=== PATIENT | male | born 1950 | race Caucasian/White ===

== ENCOUNTER 2020-03-29 01:35 | Inpatient (IN) | payer MEDICARE ==
[~2020-03-29] VITALS: Ht 172.7 cm; Wt 120.0 kg
[2020-03-29] MEDS ORDERED: SODIUM CHLORIDE 0.9% 1,000 ML IV ONE (02:11)
[2020-03-29] MEDS ORDERED: ONDANSETRON HCL 4MG/2ML INJ IV STA (02:11)
[2020-03-29 02:26] LABS: BASOPHILS % 1.3 % (0.0-2.0); EOSINOPHILS % 3.8 % (0.0-5.0); HEMATOCRIT. 43.8 % (42.0-52.0); HEMOGLOBIN. 14.9 g/dL (14.0-18.0); LYMPHOCYTES % 22.7 % (20.0-50.0); MEAN CORPUSCULAR HEMOGLOBIN 28.8 pg (28.0-32.0); MEAN PLATELET VOLUME 7.3 fl (7.4-10.4); MONOCYTES % 8.7 % (2.0-8.0); NEUTROPHILS % 63.5 % (40.0-76.0); PLATELET 242 x1000/uL (130-400); RED BLOOD CELL COUNT 5.16 mill/uL (4.7-6.1); RED CELL DISTRIBUTION WIDTH 13.4 % (11.6-14.6)
[2020-03-29 02:31] LABS: PROTHROMBIN TIME 10.7 sec (9.6-11.0)
[2020-03-29 02:32] LABS: CHLORIDE 99 mEq/L (98-107)
[2020-03-29 02:36] LABS: ETHANOL BLOOD < 10 mg/dL
[2020-03-29 02:41] LABS: CREATINE KINASE 47 IU/L (39-308)
[2020-03-29] MEDS ORDERED: CLONIDINE 0.2MG TABLET PO ONE (02:45)
[2020-03-29] MEDS ORDERED: LABETALOL 5MG/ML SYR 20 MG/4 ML SYRINGE IV ONE (02:45)
[2020-03-29] MEDS ORDERED: HYDRALAZINE 20MG/ML VIAL IV NR (04:15)
[2020-03-29] MEDS ORDERED: ONDANSETRON HCL 4MG/2ML INJ IV ONE (04:45)
[2020-03-29] MEDS ORDERED: LORAZEPAM 0.5MG TABLET PO ONE (04:45)
[2020-03-29] MEDS ORDERED: INSULIN LISPRO 100 UNITS/ML SUBCUT ONE (04:45)
[2020-03-29] MEDS ORDERED: METOCLOPRAMIDE HCL 10MG/2ML VIAL IV ONE (04:45)
[2020-03-29 04:49] LABS: CLARITY URINE CLEAR (CLEAR); COLOR URINE YELLOW (YELLOW); KETONES URINE 1+ (NEGATIVE); LEUKOCYTE ESTERASE URINE NEGATIVE (NEGATIVE); NITRITE URINE NEGATIVE (NEGATIVE); OCCULT BLOOD URINE NEGATIVE (NEGATIVE); PH URINE 7.5 (4.5-8.0); PROTEIN URINE 1+ (NEGATIVE); SPECIFIC GRAVITY URINE 1.025 (1.005-1.030); UROBILINOGEN URINE 0.2 E.U./dL (0.2-1.0)
[2020-03-29 05:00] LABS: *AMPHETAMINES SCREEN URINE NEGATIVE (NEGATIVE); *BARBITURATES SCREEN URINE NEGATIVE (NEGATIVE); *BENZODIAZEPINES SCREEN URINE NEGATIVE (NEGATIVE)
[2020-03-29] MEDS ORDERED: NICARDIPINE 40MG/200ML PREMIX 200 ML IV PRN (05:00)
[2020-03-29 05:01] LABS: *COCAINE SCREEN URINE NEGATIVE (NEGATIVE); CANNABINOID URINE SCREEN NEGATIVE (NEGATIVE); METHADONE URINE SCREEN NEGATIVE (NEGATIVE); OPIATES URINE SCREEN NEGATIVE (NEGATIVE); PHENCYCLIDINE URINE SCREEN NEGATIVE (NEGATIVE)
[2020-03-29] MEDS ORDERED: HYDRALAZINE 20MG/ML VIAL IV PRN (07:15)
[2020-03-29] MEDS ORDERED: NITROGLYCERIN 0.4MG TABLET SL SL PRN (07:15)
[2020-03-29] MEDS ORDERED: GUAIFENESIN 200MG/10ML SUGAR FREE UDC PO PRN (07:15)
[2020-03-29] MEDS ORDERED: LEVOFLOXACIN 500MG PREMIX 100 ML IV SCH ×2 (07:15→10:00)
[2020-03-29] MEDS ORDERED: IPRATROPIUM/ALBUTEROL 0.5-3(2.5)MG/3ML NEB ORI PRN (07:15)
[2020-03-29] MEDS ORDERED: DEXTROSE 50% WATER 50ML SYRINGE IV PRN (07:15)
[2020-03-29] MEDS ORDERED: ONDANSETRON HCL 4MG/2ML INJ IV PRN (07:15)
[2020-03-29] MEDS ORDERED: KETOROLAC 15MG/ML VIAL IV PRN (07:15)
[2020-03-29] MEDS: NITROGLYCERIN OINT 1GM/INCH UDPKT TD SCH ×3 (07:15→22:33)
[2020-03-29] MEDS ORDERED: ACETAMINOPHEN 325MG TABLET PO PRN (07:15)
[2020-03-29] MEDS: METOCLOPRAMIDE 10MG/10 ML UDC PO SCH ×3 (07:50→18:34)
[2020-03-29] MEDS: INSULIN LISPRO 100 UNITS/ML SUBCUT SCH ×7 (07:50→21:26)
[2020-03-29] MEDS ORDERED: MAGNESIUM/ALUMINUM HYDROXIDE/SIMETHICONE 30ML UDC PO PRN (09:00)
[2020-03-29] MEDS ORDERED: CEFTRIAXONE 1 G PREMIX 50 ML IV SCH ×2 (09:00)
[2020-03-29] MEDS: ASPIRIN 325MG EC TABLET PO SCH (09:52)
[2020-03-29] MEDS: FAMOTIDINE 20MG TABLET PO SCH ×2 (09:52→21:26)
[2020-03-29] MEDS: AMLODIPINE 10MG TABLET PO SCH (09:52)
[2020-03-29] MEDS: ZINC SULFATE 220 MG ( 50 ) CAPSULE PO SCH (09:52)
[2020-03-29] MEDS: ASCORBIC ACID 500 MG TABLET PO SCH ×2 (09:52→21:33)
[2020-03-29] MEDS: METOPROLOL TARTRATE 25MG TABLET PO SCH ×2 (09:52→21:26)
[2020-03-29] MEDS: ENOXAPARIN 40MG/0.4ML SYR SUBCUT SCH (09:52)
[2020-03-29] MEDS: LISINOPRIL 20MG TABLET PO SCH ×2 (09:52→21:26)
[2020-03-29] MEDS: BLOOD SUGAR DIAGNOSTIC STRIP TEST SCH ×4 (09:53→21:18)
[2020-03-29 09:57] LABS: CLARITY URINE CLEAR (CLEAR); COLOR URINE YELLOW (YELLOW); KETONES URINE 1+ (NEGATIVE); LEUKOCYTE ESTERASE URINE 1+ (NEGATIVE); NITRITE URINE NEGATIVE (NEGATIVE); OCCULT BLOOD URINE NEGATIVE (NEGATIVE); PH URINE 6.5 (4.5-8.0); PROTEIN URINE NEGATIVE (NEGATIVE); SPECIFIC GRAVITY URINE 1.024 (1.005-1.030); UROBILINOGEN URINE 0.2 E.U./dL (0.2-1.0)
[2020-03-29] MEDS ORDERED: INSULIN GLARGINE UD 100 UNITS/ML SYR SUBCUT SCH (10:00)
[2020-03-29] MEDS ORDERED: POTASSIUM CHLORIDE 20MEQ TABLET SR PO SCH (11:00)
[2020-03-29] MEDS ORDERED: KCL 20MEQ/100ML PREMIX 100 ML IV ONE (11:00)
[2020-03-29] MEDS: HYDRALAZINE HCL 50MG TABLET PO SCH ×2 (14:46→22:33)
[2020-03-29 16:07] LABS: CREATINE KINASE 68 IU/L (39-308)
[2020-03-29] MEDS: CLONIDINE 0.1MG TABLET PO PRN (19:35)
[2020-03-29 23:54] LABS: CREATINE KINASE 120 IU/L (39-308)
[2020-03-29 23:55] LABS: CREATINE KINASE MB FRACTION 2.1 ng/mL (0.5-3.6)
[2020-03-30 00:51] VITALS: BP 164/79
[2020-03-30] MEDS ORDERED: ASPI325T85 PO (01:19)
[2020-03-30] MEDS: CLONIDINE 0.1MG TABLET PO PRN (04:22)
[2020-03-30] MEDS: NITROGLYCERIN OINT 1GM/INCH UDPKT TD SCH ×3 (06:20→21:32)
[2020-03-30] MEDS: BLOOD SUGAR DIAGNOSTIC STRIP TEST SCH ×4 (06:20→21:33)
[2020-03-30] MEDS: HYDRALAZINE HCL 50MG TABLET PO SCH ×4 (06:20→23:19)
[2020-03-30 06:34] LABS: BASOPHILS % 0.7 % (0.0-2.0); EOSINOPHILS % 0.4 % (0.0-5.0); HEMATOCRIT. 42.2 % (42.0-52.0); MEAN CORPUSCULAR HEMOGLOBIN 28.5 pg (28.0-32.0); MEAN PLATELET VOLUME 7.1 fl (7.4-10.4); MONOCYTES % 5.6 % (2.0-8.0); NEUTROPHILS % 84.3 % (40.0-76.0); PLATELET 211 x1000/uL (130-400); RED BLOOD CELL COUNT 4.91 mill/uL (4.7-6.1); RED CELL DISTRIBUTION WIDTH 13.9 % (11.6-14.6)
[2020-03-30] MEDS: INSULIN LISPRO 100 UNITS/ML SUBCUT SCH ×7 (06:45→21:31)
[2020-03-30 07:02] LABS: CHLORIDE 102 mEq/L (98-107)
[2020-03-30 07:10] LABS: PHOSPHORUS 3.1 mg/dL (2.5-4.9)
[2020-03-30 08:00] VITALS: BP 138/67
[2020-03-30] MEDS: FAMOTIDINE 20MG TABLET PO SCH ×2 (09:50→21:32)
[2020-03-30] MEDS: ASPIRIN 325MG EC TABLET PO SCH (09:50)
[2020-03-30] MEDS: LEVOFLOXACIN 500MG PREMIX 100 ML IV SCH (09:50)
[2020-03-30] MEDS: METOCLOPRAMIDE 10MG/10 ML UDC PO SCH ×4 (09:50→17:26)
[2020-03-30] MEDS: LISINOPRIL 20MG TABLET PO SCH ×2 (09:51→21:32)
[2020-03-30] MEDS: ENOXAPARIN 40MG/0.4ML SYR SUBCUT SCH (09:51)
[2020-03-30] MEDS: ZINC SULFATE 220 MG ( 50 ) CAPSULE PO SCH (09:51)
[2020-03-30] MEDS: AMLODIPINE 10MG TABLET PO SCH (09:51)
[2020-03-30] MEDS: METOPROLOL TARTRATE 25MG TABLET PO SCH ×2 (09:51→21:35)
[2020-03-30] MEDS: ASCORBIC ACID 500 MG TABLET PO SCH ×2 (09:51→21:31)
[2020-03-30] MEDS: INSULIN GLARGINE UD 100 UNITS/ML SYR SUBCUT SCH (10:22)
[2020-03-30] MEDS: CEFTRIAXONE 1 G PREMIX 50 ML IV SCH (10:23)
[2020-03-30] MEDS: ACETAMINOPHEN 325MG TABLET PO PRN (10:45)
[2020-03-30 12:00] VITALS: BP 138/71
[2020-03-30 16:00] VITALS: BP 114/55
[2020-03-30] MEDS: NYSTATIN POWDER 15GM TOP SCH (21:38)
[2020-03-30 21:40] VITALS: BP 132/50
[2020-03-31] VITALS: BP 135/62
[2020-03-31 04:00] VITALS: BP 140/65
[2020-03-31] MEDS: HYDRALAZINE HCL 50MG TABLET PO SCH ×3 (06:07→21:41)
[2020-03-31] MEDS: BLOOD SUGAR DIAGNOSTIC STRIP TEST SCH ×4 (06:07→21:41)
[2020-03-31] MEDS: METOCLOPRAMIDE 10MG/10 ML UDC PO SCH ×3 (06:07→17:09)
[2020-03-31] MEDS: NITROGLYCERIN OINT 1GM/INCH UDPKT TD SCH ×3 (06:07→21:45)
[2020-03-31] MEDS: INSULIN LISPRO 100 UNITS/ML SUBCUT SCH ×7 (06:09→21:44)
[2020-03-31 08:00] VITALS: BP 131/48
[2020-03-31] MEDS: LEVOFLOXACIN 500MG PREMIX 100 ML IV SCH (08:00)
[2020-03-31] MEDS: CEFTRIAXONE 1 G PREMIX 50 ML IV SCH (09:00)
[2020-03-31] MEDS: METOPROLOL TARTRATE 25MG TABLET PO SCH ×2 (09:10→21:40)
[2020-03-31] MEDS: FAMOTIDINE 20MG TABLET PO SCH ×2 (09:11→21:41)
[2020-03-31] MEDS: ZINC SULFATE 220 MG ( 50 ) CAPSULE PO SCH (09:11)
[2020-03-31] MEDS: ASCORBIC ACID 500 MG TABLET PO SCH ×2 (09:12→21:41)
[2020-03-31] MEDS: AMLODIPINE 10MG TABLET PO SCH (09:12)
[2020-03-31] MEDS: ASPIRIN 325MG EC TABLET PO SCH (09:12)
[2020-03-31] MEDS: LISINOPRIL 20MG TABLET PO SCH ×2 (09:12→21:41)
[2020-03-31] MEDS: ENOXAPARIN 30MG/0.3ML SYR SUBCUT SCH ×2 (09:12→21:42)
[2020-03-31] MEDS: NYSTATIN POWDER 15GM TOP SCH ×2 (09:13→21:42)
[2020-03-31] MEDS: INSULIN GLARGINE UD 100 UNITS/ML SYR SUBCUT SCH (11:50)
[2020-03-31 12:00] VITALS: BP 134/68
[2020-03-31 16:20] VITALS: BP 113/51
[2020-03-31] MEDS: HALOPERIDOL LACTATE 5MG/ML VIAL IM PRN (17:11)
[2020-03-31] MEDS: TRAMADOL 50MG TABLET PO PRN (17:11)
[2020-03-31 20:00] VITALS: BP 133/67
[2020-04-01] VITALS: BP 149/80
[2020-04-01] MEDS: TRAMADOL 50MG TABLET PO PRN ×2 (00:02→22:33)
[2020-04-01 04:00] VITALS: BP 132/76
[2020-04-01] MEDS: NITROGLYCERIN OINT 1GM/INCH UDPKT TD SCH ×3 (06:59→22:34)
[2020-04-01] MEDS: HYDRALAZINE HCL 50MG TABLET PO SCH ×3 (06:59→22:33)
[2020-04-01] MEDS: METOCLOPRAMIDE 10MG/10 ML UDC PO SCH ×3 (06:59→18:03)
[2020-04-01] MEDS: BLOOD SUGAR DIAGNOSTIC STRIP TEST SCH ×4 (07:00→21:11)
[2020-04-01] MEDS: INSULIN LISPRO 100 UNITS/ML SUBCUT SCH ×7 (07:00→22:43)
[2020-04-01 08:00] VITALS: BP 129/65
[2020-04-01] MEDS: ASPIRIN 325MG EC TABLET PO SCH (08:41)
[2020-04-01] MEDS: FAMOTIDINE 20MG TABLET PO SCH ×2 (08:41→21:06)
[2020-04-01] MEDS: ASCORBIC ACID 500 MG TABLET PO SCH ×2 (08:42→21:06)
[2020-04-01] MEDS: ACETAMINOPHEN 325MG TABLET PO PRN (08:42)
[2020-04-01] MEDS: AMLODIPINE 10MG TABLET PO SCH (08:46)
[2020-04-01] MEDS: DOCUSATE SODIUM 100MG CAPSULE PO PRN (08:46)
[2020-04-01] MEDS: ENOXAPARIN 30MG/0.3ML SYR SUBCUT SCH ×2 (08:47→21:06)
[2020-04-01] MEDS: ZINC SULFATE 220 MG ( 50 ) CAPSULE PO SCH (08:49)
[2020-04-01] MEDS: LISINOPRIL 20MG TABLET PO SCH ×2 (08:50→21:08)
[2020-04-01] MEDS: METOPROLOL TARTRATE 25MG TABLET PO SCH ×2 (08:50→21:08)
[2020-04-01] MEDS: NYSTATIN POWDER 15GM TOP SCH ×2 (08:57→21:31)
[2020-04-01 12:00] VITALS: BP 128/69
[2020-04-01] MEDS: INSULIN GLARGINE UD 100 UNITS/ML SYR SUBCUT SCH (12:03)
[2020-04-01] MEDS: CEFTRIAXONE 1 G PREMIX 50 ML IV SCH (12:31)
[2020-04-01 16:00] VITALS: BP 140/74
[2020-04-01 20:00] VITALS: BP 154/85
[2020-04-01] MEDS: ZOLPIDEM TARTRATE 5MG TABLET PO PRN (21:06)
[2020-04-02] VITALS: BP 118/70
[2020-04-02] MEDS: HALOPERIDOL LACTATE 5MG/ML VIAL IM PRN (01:39)
[2020-04-02] MEDS: BLOOD SUGAR DIAGNOSTIC STRIP TEST SCH ×4 (05:45→21:55)
[2020-04-02] MEDS: INSULIN LISPRO 100 UNITS/ML SUBCUT SCH ×7 (05:49→22:21)
[2020-04-02] MEDS: HYDRALAZINE HCL 50MG TABLET PO SCH ×3 (05:49→21:43)
[2020-04-02] MEDS: NITROGLYCERIN OINT 1GM/INCH UDPKT TD SCH ×3 (05:50→21:45)
[2020-04-02] MEDS: METOCLOPRAMIDE 10MG/10 ML UDC PO SCH ×3 (05:50→17:08)
[2020-04-02 05:59] VITALS: BP 150/69
[2020-04-02 07:53] VITALS: BP 124/58
[2020-04-02] MEDS: CEFTRIAXONE 1,000 MG in DEXTROSE 5% WATER 50 ML IV SCH (09:00)
[2020-04-02] MEDS: ENOXAPARIN 30MG/0.3ML SYR SUBCUT SCH ×2 (09:24→21:45)
[2020-04-02] MEDS: NYSTATIN POWDER 15GM TOP SCH ×2 (09:51→21:46)
[2020-04-02] MEDS: INSULIN GLARGINE UD 100 UNITS/ML SYR SUBCUT SCH (10:05)
[2020-04-02] MEDS: ASPIRIN 325MG EC TABLET PO SCH (11:05)
[2020-04-02] MEDS: LISINOPRIL 20MG TABLET PO SCH ×2 (11:07→21:44)
[2020-04-02] MEDS: FAMOTIDINE 20MG TABLET PO SCH ×2 (11:07→21:42)
[2020-04-02] MEDS: ZINC SULFATE 220 MG ( 50 ) CAPSULE PO SCH (11:07)
[2020-04-02] MEDS: AMLODIPINE 10MG TABLET PO SCH (11:07)
[2020-04-02] MEDS: ASCORBIC ACID 500 MG TABLET PO SCH ×2 (11:08→21:43)
[2020-04-02] MEDS: METOPROLOL TARTRATE 25MG TABLET PO SCH ×2 (11:08→21:44)
[2020-04-02 12:00] VITALS: BP 151/76
[2020-04-02 16:00] VITALS: BP 127/64
[2020-04-02] MEDS: ACETAMINOPHEN 325MG TABLET PO PRN (18:06)
[2020-04-02 20:00] VITALS: BP 110/58
[2020-04-02] MEDS: ZOLPIDEM TARTRATE 5MG TABLET PO PRN (21:44)
[2020-04-03] VITALS: BP 148/74
[2020-04-03 04:00] VITALS: BP 110/62
[2020-04-03] MEDS: NITROGLYCERIN OINT 1GM/INCH UDPKT TD SCH ×3 (05:43→23:10)
[2020-04-03] MEDS: HYDRALAZINE HCL 50MG TABLET PO SCH ×3 (05:43→23:10)
[2020-04-03] MEDS: METOCLOPRAMIDE 10MG/10 ML UDC PO SCH ×3 (05:52→17:51)
[2020-04-03] MEDS: INSULIN LISPRO 100 UNITS/ML SUBCUT SCH ×7 (06:15→23:57)
[2020-04-03] MEDS: BLOOD SUGAR DIAGNOSTIC STRIP TEST SCH ×4 (06:16→21:00)
[2020-04-03 08:05] VITALS: BP 96/82
[2020-04-03] MEDS: AMLODIPINE 10MG TABLET PO SCH (09:00)
[2020-04-03] MEDS: LISINOPRIL 20MG TABLET PO SCH (09:00)
[2020-04-03] MEDS: METOPROLOL TARTRATE 25MG TABLET PO SCH ×2 (09:00→23:08)
[2020-04-03] MEDS: NYSTATIN POWDER 15GM TOP SCH (09:00)
[2020-04-03] MEDS: CEFTRIAXONE 1,000 MG in DEXTROSE 5% WATER 50 ML IV SCH (09:02)
[2020-04-03] MEDS: FAMOTIDINE 20MG TABLET PO SCH ×2 (09:02→23:09)
[2020-04-03] MEDS: ZINC SULFATE 220 MG ( 50 ) CAPSULE PO SCH (09:02)
[2020-04-03] MEDS: ASPIRIN 325MG EC TABLET PO SCH (09:02)
[2020-04-03] MEDS: ENOXAPARIN 30MG/0.3ML SYR SUBCUT SCH ×2 (09:04→23:09)
[2020-04-03 11:31] VITALS: BP 111/66
[2020-04-03] MEDS: ASCORBIC ACID 500 MG TABLET PO SCH ×2 (11:31→23:09)
[2020-04-03] MEDS: INSULIN GLARGINE UD 100 UNITS/ML SYR SUBCUT SCH (11:32)
[2020-04-03 15:57] VITALS: BP 112/58
[2020-04-03 20:00] VITALS: BP 126/68
[2020-04-04] VITALS: BP 119/70
[2020-04-04] MEDS: LISINOPRIL 20MG TABLET PO SCH ×3 (00:01→21:42)
[2020-04-04 04:00] VITALS: BP 110/84
[2020-04-04] MEDS: BLOOD SUGAR DIAGNOSTIC STRIP TEST SCH ×4 (07:27→21:00)
[2020-04-04] MEDS: NYSTATIN POWDER 15GM TOP SCH ×3 (07:35→23:05)
[2020-04-04] MEDS: NITROGLYCERIN OINT 1GM/INCH UDPKT TD SCH ×3 (07:36→22:49)
[2020-04-04] MEDS: HYDRALAZINE HCL 50MG TABLET PO SCH ×3 (07:36→22:49)
[2020-04-04] MEDS: METOCLOPRAMIDE 10MG/10 ML UDC PO SCH ×3 (07:36→17:28)
[2020-04-04 08:00] VITALS: BP 135/64
[2020-04-04] MEDS: CEFTRIAXONE 1,000 MG in DEXTROSE 5% WATER 50 ML IV SCH (08:59)
[2020-04-04] MEDS: FAMOTIDINE 20MG TABLET PO SCH ×2 (09:00→21:42)
[2020-04-04] MEDS: ZINC SULFATE 220 MG ( 50 ) CAPSULE PO SCH (09:00)
[2020-04-04] MEDS: AMLODIPINE 10MG TABLET PO SCH (09:00)
[2020-04-04] MEDS: ASCORBIC ACID 500 MG TABLET PO SCH ×2 (09:00→21:42)
[2020-04-04] MEDS: METOPROLOL TARTRATE 25MG TABLET PO SCH ×2 (09:00→21:42)
[2020-04-04] MEDS: ASPIRIN 325MG EC TABLET PO SCH (09:01)
[2020-04-04] MEDS: ENOXAPARIN 30MG/0.3ML SYR SUBCUT SCH ×2 (09:01→21:43)
[2020-04-04] MEDS: INSULIN LISPRO 100 UNITS/ML SUBCUT SCH ×7 (09:36→21:44)
[2020-04-04] MEDS: INSULIN GLARGINE UD 100 UNITS/ML SYR SUBCUT SCH (10:05)
[2020-04-04 12:00] VITALS: BP 121/66
[2020-04-04 16:00] VITALS: BP 93/57
[2020-04-04 20:00] VITALS: BP 134/72
[2020-04-05] VITALS (7 sets, daily range): BP systolic 107–147; BP diastolic 60–69
[2020-04-05] MEDS: ACETAMINOPHEN 325MG TABLET PO PRN ×2 (02:40→23:03)
[2020-04-05] MEDS: BLOOD SUGAR DIAGNOSTIC STRIP TEST SCH ×4 (05:54→21:47)
[2020-04-05] MEDS: NITROGLYCERIN OINT 1GM/INCH UDPKT TD SCH ×3 (06:03→21:41)
[2020-04-05] MEDS: HYDRALAZINE HCL 50MG TABLET PO SCH ×3 (06:03→21:42)
[2020-04-05] MEDS: METOCLOPRAMIDE 10MG/10 ML UDC PO SCH ×3 (06:03→16:59)
[2020-04-05] MEDS: ENOXAPARIN 30MG/0.3ML SYR SUBCUT SCH ×2 (09:24→21:40)
[2020-04-05] MEDS: FAMOTIDINE 20MG TABLET PO SCH ×2 (09:26→21:41)
[2020-04-05] MEDS: LISINOPRIL 20MG TABLET PO SCH ×2 (09:26→21:42)
[2020-04-05] MEDS: ZINC SULFATE 220 MG ( 50 ) CAPSULE PO SCH (09:26)
[2020-04-05] MEDS: ASCORBIC ACID 500 MG TABLET PO SCH ×2 (09:26→21:41)
[2020-04-05] MEDS: ASPIRIN 325MG EC TABLET PO SCH (09:27)
[2020-04-05] MEDS: METOPROLOL TARTRATE 25MG TABLET PO SCH ×2 (09:27→21:41)
[2020-04-05] MEDS: AMLODIPINE 10MG TABLET PO SCH (09:28)
[2020-04-05] MEDS: INSULIN LISPRO 100 UNITS/ML SUBCUT SCH ×7 (09:30→21:46)
[2020-04-05] MEDS: INSULIN GLARGINE UD 100 UNITS/ML SYR SUBCUT SCH (09:32)
[2020-04-05] MEDS: NYSTATIN POWDER 15GM TOP SCH ×2 (09:33→21:48)
[2020-04-06] VITALS (7 sets, daily range): BP systolic 115–141; BP diastolic 59–73
[2020-04-06] MEDS: HYDRALAZINE HCL 50MG TABLET PO SCH ×3 (06:21→22:00)
[2020-04-06] MEDS: METOCLOPRAMIDE 10MG/10 ML UDC PO SCH ×3 (06:22→18:29)
[2020-04-06] MEDS: NITROGLYCERIN OINT 1GM/INCH UDPKT TD SCH ×3 (06:22→22:00)
[2020-04-06] MEDS: BLOOD SUGAR DIAGNOSTIC STRIP TEST SCH ×4 (06:22→21:00)
[2020-04-06] MEDS: NYSTATIN POWDER 15GM TOP SCH ×2 (09:00→22:47)
[2020-04-06] MEDS: ASCORBIC ACID 500 MG TABLET PO SCH ×2 (09:11→22:50)
[2020-04-06] MEDS: FAMOTIDINE 20MG TABLET PO SCH ×2 (09:11→22:52)
[2020-04-06] MEDS: AMLODIPINE 10MG TABLET PO SCH (09:11)
[2020-04-06] MEDS: ZINC SULFATE 220 MG ( 50 ) CAPSULE PO SCH (09:11)
[2020-04-06] MEDS: ASPIRIN 325MG EC TABLET PO SCH (09:12)
[2020-04-06] MEDS: LISINOPRIL 20MG TABLET PO SCH ×2 (09:12→22:50)
[2020-04-06] MEDS: METOPROLOL TARTRATE 25MG TABLET PO SCH ×2 (09:12→22:50)
[2020-04-06] MEDS: ENOXAPARIN 30MG/0.3ML SYR SUBCUT SCH ×2 (09:13→22:49)
[2020-04-06] MEDS: INSULIN LISPRO 100 UNITS/ML SUBCUT SCH ×6 (09:19→22:46)
[2020-04-06] MEDS: INSULIN GLARGINE UD 100 UNITS/ML SYR SUBCUT SCH (12:08)
[2020-04-06] MEDS: ACETAMINOPHEN 325MG TABLET PO PRN (19:14)
[2020-04-07] VITALS: BP 111/57
[2020-04-07] MEDS: INSULIN LISPRO 100 UNITS/ML SUBCUT SCH ×8 (01:40→21:00)
[2020-04-07 04:00] VITALS: BP 132/61
[2020-04-07] MEDS: HYDRALAZINE HCL 50MG TABLET PO SCH ×3 (05:30→22:00)
[2020-04-07] MEDS: NITROGLYCERIN OINT 1GM/INCH UDPKT TD SCH ×3 (05:30→23:12)
[2020-04-07] MEDS: BLOOD SUGAR DIAGNOSTIC STRIP TEST SCH ×4 (06:15→21:00)
[2020-04-07] MEDS: METOCLOPRAMIDE 10MG/10 ML UDC PO SCH ×3 (06:20→17:22)
[2020-04-07 08:00] VITALS: BP 116/56
[2020-04-07] MEDS: ASPIRIN 325MG EC TABLET PO SCH (09:33)
[2020-04-07] MEDS: ENOXAPARIN 30MG/0.3ML SYR SUBCUT SCH ×2 (09:33→23:25)
[2020-04-07] MEDS: ASCORBIC ACID 500 MG TABLET PO SCH ×2 (09:33→23:12)
[2020-04-07] MEDS: ZINC SULFATE 220 MG ( 50 ) CAPSULE PO SCH (09:33)
[2020-04-07] MEDS: FAMOTIDINE 20MG TABLET PO SCH ×2 (09:33→23:12)
[2020-04-07] MEDS: AMLODIPINE 10MG TABLET PO SCH (09:33)
[2020-04-07] MEDS: LISINOPRIL 20MG TABLET PO SCH ×2 (09:34→23:13)
[2020-04-07] MEDS: METOPROLOL TARTRATE 25MG TABLET PO SCH ×2 (09:34→23:13)
[2020-04-07] MEDS: NYSTATIN POWDER 15GM TOP SCH ×2 (09:36→21:00)
[2020-04-07 09:39] LABS: HEMATOCRIT. 41.7 % (42.0-52.0); LYMPHOCYTES % 18.1 % (20.0-50.0); MEAN CORPUSCULAR HEMOGLOBIN 29.1 pg (28.0-32.0); MEAN CORPUSCULAR VOLUME 86.7 fL (80.0-94.0); MEAN PLATELET VOLUME 7.1 fl (7.4-10.4); MONOCYTES % 9.7 % (2.0-8.0); NEUTROPHILS % 65.2 % (40.0-76.0); PLATELET 255 x1000/uL (130-400); RED BLOOD CELL COUNT 4.81 mill/uL (4.7-6.1)
[2020-04-07 09:58] LABS: CHLORIDE 106 mEq/L (98-107)
[2020-04-07] MEDS: INSULIN GLARGINE UD 100 UNITS/ML SYR SUBCUT SCH (10:06)
[2020-04-07 12:00] VITALS: BP 109/55
[2020-04-07 16:00] VITALS: BP 107/49
[2020-04-07 20:00] VITALS: BP 112/59
[2020-04-08] VITALS (7 sets, daily range): BP systolic 99–139; BP diastolic 51–70
[2020-04-08] MEDS: METOCLOPRAMIDE 10MG/10 ML UDC PO SCH ×3 (06:16→17:11)
[2020-04-08] MEDS: NITROGLYCERIN OINT 1GM/INCH UDPKT TD SCH ×3 (06:17→22:29)
[2020-04-08] MEDS: HYDRALAZINE HCL 50MG TABLET PO SCH ×3 (06:18→22:29)
[2020-04-08] MEDS: BLOOD SUGAR DIAGNOSTIC STRIP TEST SCH ×4 (06:18→20:29)
[2020-04-08] MEDS: INSULIN LISPRO 100 UNITS/ML SUBCUT SCH ×7 (06:18→20:41)
[2020-04-08] MEDS: METOPROLOL TARTRATE 25MG TABLET PO SCH ×2 (08:11→20:32)
[2020-04-08] MEDS: AMLODIPINE 10MG TABLET PO SCH (08:12)
[2020-04-08] MEDS: LISINOPRIL 20MG TABLET PO SCH ×2 (08:14→20:31)
[2020-04-08] MEDS: FAMOTIDINE 20MG TABLET PO SCH ×2 (09:35→20:28)
[2020-04-08] MEDS: ENOXAPARIN 30MG/0.3ML SYR SUBCUT SCH ×2 (09:35→20:28)
[2020-04-08] MEDS: ASCORBIC ACID 500 MG TABLET PO SCH ×2 (09:35→20:28)
[2020-04-08] MEDS: ASPIRIN 325MG EC TABLET PO SCH (09:35)
[2020-04-08] MEDS: ZINC SULFATE 220 MG ( 50 ) CAPSULE PO SCH (09:35)
[2020-04-08] MEDS: NYSTATIN POWDER 15GM TOP SCH ×2 (09:44→20:42)
[2020-04-08] MEDS: INSULIN GLARGINE UD 100 UNITS/ML SYR SUBCUT SCH (12:30)
[2020-04-09] VITALS (7 sets, daily range): BP systolic 94–141; BP diastolic 54–68
[2020-04-09] MEDS: METOCLOPRAMIDE 10MG/10 ML UDC PO SCH ×3 (05:58→16:39)
[2020-04-09] MEDS: HYDRALAZINE HCL 50MG TABLET PO SCH ×3 (05:59→22:11)
[2020-04-09] MEDS: NITROGLYCERIN OINT 1GM/INCH UDPKT TD SCH ×3 (05:59→22:11)
[2020-04-09] MEDS: BLOOD SUGAR DIAGNOSTIC STRIP TEST SCH ×4 (05:59→20:39)
[2020-04-09] MEDS: INSULIN LISPRO 100 UNITS/ML SUBCUT SCH ×7 (06:11→20:54)
[2020-04-09] MEDS: ZINC SULFATE 220 MG ( 50 ) CAPSULE PO SCH (09:33)
[2020-04-09] MEDS: METOPROLOL TARTRATE 25MG TABLET PO SCH ×2 (09:34→20:37)
[2020-04-09] MEDS: LISINOPRIL 20MG TABLET PO SCH ×2 (09:34→20:37)
[2020-04-09] MEDS: AMLODIPINE 10MG TABLET PO SCH (09:34)
[2020-04-09] MEDS: ASCORBIC ACID 500 MG TABLET PO SCH ×2 (09:34→20:38)
[2020-04-09] MEDS: FAMOTIDINE 20MG TABLET PO SCH ×2 (09:35→20:38)
[2020-04-09] MEDS: ENOXAPARIN 30MG/0.3ML SYR SUBCUT SCH ×2 (09:35→20:39)
[2020-04-09] MEDS: ASPIRIN 325MG EC TABLET PO SCH (10:01)
[2020-04-09] MEDS: NYSTATIN POWDER 15GM TOP SCH ×2 (10:13→20:45)
[2020-04-09] MEDS: INSULIN GLARGINE UD 100 UNITS/ML SYR SUBCUT SCH (10:18)
[2020-04-10] VITALS: BP 116/60
[2020-04-10 04:00] VITALS: BP 114/65
[2020-04-10] MEDS: HYDRALAZINE HCL 50MG TABLET PO SCH ×3 (05:20→21:07)
[2020-04-10] MEDS: NITROGLYCERIN OINT 1GM/INCH UDPKT TD SCH ×2 (05:47→14:21)
[2020-04-10] MEDS: METOCLOPRAMIDE 10MG/10 ML UDC PO SCH ×3 (05:47→16:44)
[2020-04-10] MEDS: BLOOD SUGAR DIAGNOSTIC STRIP TEST SCH ×4 (05:48→21:06)
[2020-04-10] MEDS: ACETAMINOPHEN 325MG TABLET PO PRN ×2 (06:00→11:02)
[2020-04-10] MEDS: INSULIN LISPRO 100 UNITS/ML SUBCUT SCH ×7 (06:14→21:00)
[2020-04-10 08:00] VITALS: BP 119/51
[2020-04-10] MEDS: ASPIRIN 325MG EC TABLET PO SCH (09:33)
[2020-04-10] MEDS: FAMOTIDINE 20MG TABLET PO SCH ×2 (09:34→21:06)
[2020-04-10] MEDS: ASCORBIC ACID 500 MG TABLET PO SCH ×2 (09:34→21:06)
[2020-04-10] MEDS: AMLODIPINE 10MG TABLET PO SCH (09:34)
[2020-04-10] MEDS: METOPROLOL TARTRATE 25MG TABLET PO SCH ×2 (09:34→21:00)
[2020-04-10] MEDS: LISINOPRIL 20MG TABLET PO SCH ×2 (09:34→21:00)
[2020-04-10] MEDS: ZINC SULFATE 220 MG ( 50 ) CAPSULE PO SCH (09:34)
[2020-04-10] MEDS: ENOXAPARIN 30MG/0.3ML SYR SUBCUT SCH ×2 (09:35→21:05)
[2020-04-10] MEDS: NYSTATIN POWDER 15GM TOP SCH ×2 (09:41→21:07)
[2020-04-10] MEDS: INSULIN GLARGINE UD 100 UNITS/ML SYR SUBCUT SCH (11:00)
[2020-04-10 12:00] VITALS: BP 126/67
[2020-04-10 16:00] VITALS: BP 112/64
[2020-04-10 20:00] VITALS: BP 109/62
[2020-04-11] MEDS: NITROGLYCERIN OINT 1GM/INCH UDPKT TD SCH ×4 (00:05→22:51)
[2020-04-11] MEDS: HYDRALAZINE HCL 50MG TABLET PO SCH ×3 (06:00→22:49)
[2020-04-11] MEDS: BLOOD SUGAR DIAGNOSTIC STRIP TEST SCH ×4 (06:26→21:00)
[2020-04-11] MEDS: ASCORBIC ACID 500 MG TABLET PO SCH ×2 (08:57→22:49)
[2020-04-11] MEDS: FAMOTIDINE 20MG TABLET PO SCH ×2 (08:57→22:49)
[2020-04-11] MEDS: METOPROLOL TARTRATE 25MG TABLET PO SCH ×2 (08:58→22:48)
[2020-04-11] MEDS: ASPIRIN 325MG EC TABLET PO SCH (08:58)
[2020-04-11] MEDS: ZINC SULFATE 220 MG ( 50 ) CAPSULE PO SCH (08:58)
[2020-04-11] MEDS: AMLODIPINE 10MG TABLET PO SCH (08:59)
[2020-04-11] MEDS: LISINOPRIL 20MG TABLET PO SCH ×2 (08:59→22:51)
[2020-04-11] MEDS: ENOXAPARIN 30MG/0.3ML SYR SUBCUT SCH ×2 (09:00→22:51)
[2020-04-11] MEDS: INSULIN LISPRO 100 UNITS/ML SUBCUT SCH ×7 (09:04→21:00)
[2020-04-11] MEDS: METOCLOPRAMIDE 10MG/10 ML UDC PO SCH ×3 (09:07→17:37)
[2020-04-11] MEDS: NYSTATIN POWDER 15GM TOP SCH ×2 (09:07→22:59)
[2020-04-11] MEDS: INSULIN GLARGINE UD 100 UNITS/ML SYR SUBCUT SCH (11:08)
[2020-04-11 16:00] VITALS: BP 127/62
[2020-04-11 20:00] VITALS: BP 140/63
[2020-04-12] VITALS: BP 135/60
[2020-04-12 04:00] VITALS: BP 140/60
[2020-04-12] MEDS: HYDRALAZINE HCL 50MG TABLET PO SCH ×3 (06:44→21:51)
[2020-04-12] MEDS: NITROGLYCERIN OINT 1GM/INCH UDPKT TD SCH ×3 (06:44→21:50)
[2020-04-12] MEDS: METOCLOPRAMIDE 10MG/10 ML UDC PO SCH ×3 (06:44→17:26)
[2020-04-12] MEDS: BLOOD SUGAR DIAGNOSTIC STRIP TEST SCH ×4 (07:13→21:00)
[2020-04-12] MEDS: INSULIN LISPRO 100 UNITS/ML SUBCUT SCH ×7 (07:20→21:00)
[2020-04-12 08:00] VITALS: BP 134/66
[2020-04-12] MEDS: ENOXAPARIN 30MG/0.3ML SYR SUBCUT SCH ×2 (08:22→21:51)
[2020-04-12] MEDS: ASCORBIC ACID 500 MG TABLET PO SCH ×2 (08:22→21:50)
[2020-04-12] MEDS: FAMOTIDINE 20MG TABLET PO SCH ×2 (08:23→21:50)
[2020-04-12] MEDS: ZINC SULFATE 220 MG ( 50 ) CAPSULE PO SCH (08:23)
[2020-04-12] MEDS: ASPIRIN 325MG EC TABLET PO SCH (08:23)
[2020-04-12] MEDS: LISINOPRIL 20MG TABLET PO SCH ×2 (08:26→21:50)
[2020-04-12] MEDS: METOPROLOL TARTRATE 25MG TABLET PO SCH ×2 (08:27→21:50)
[2020-04-12] MEDS: NYSTATIN POWDER 15GM TOP SCH ×2 (08:27→21:58)
[2020-04-12] MEDS: AMLODIPINE 10MG TABLET PO SCH (08:27)
[2020-04-12] MEDS: INSULIN GLARGINE UD 100 UNITS/ML SYR SUBCUT SCH (10:29)
[2020-04-12 12:00] VITALS: BP 105/57
[2020-04-12 16:00] VITALS: BP 119/53
[2020-04-12 20:00] VITALS: BP 136/79
[2020-04-13] VITALS: BP 119/80
[2020-04-13 04:00] VITALS: BP 125/74
[2020-04-13] MEDS: METOCLOPRAMIDE 10MG/10 ML UDC PO SCH ×3 (06:44→17:34)
[2020-04-13] MEDS: HYDRALAZINE HCL 50MG TABLET PO SCH ×3 (06:44→22:44)
[2020-04-13] MEDS: NITROGLYCERIN OINT 1GM/INCH UDPKT TD SCH ×3 (06:44→22:44)
[2020-04-13] MEDS: INSULIN LISPRO 100 UNITS/ML SUBCUT SCH ×7 (07:20→20:51)
[2020-04-13] MEDS: BLOOD SUGAR DIAGNOSTIC STRIP TEST SCH ×4 (07:43→20:51)
[2020-04-13 08:00] VITALS: BP 97/46
[2020-04-13] MEDS: METOPROLOL TARTRATE 25MG TABLET PO SCH ×2 (08:52→20:54)
[2020-04-13] MEDS: AMLODIPINE 10MG TABLET PO SCH (08:52)
[2020-04-13] MEDS: LISINOPRIL 20MG TABLET PO SCH ×2 (08:53→21:00)
[2020-04-13] MEDS: FAMOTIDINE 20MG TABLET PO SCH ×2 (09:08→20:54)
[2020-04-13] MEDS: ASCORBIC ACID 500 MG TABLET PO SCH ×2 (09:08→20:55)
[2020-04-13] MEDS: ZINC SULFATE 220 MG ( 50 ) CAPSULE PO SCH (09:08)
[2020-04-13] MEDS: ASPIRIN 325MG EC TABLET PO SCH (09:09)
[2020-04-13] MEDS: ENOXAPARIN 30MG/0.3ML SYR SUBCUT SCH ×2 (09:09→21:07)
[2020-04-13] MEDS: NYSTATIN POWDER 15GM TOP SCH ×2 (09:09→21:18)
[2020-04-13] MEDS: INSULIN GLARGINE UD 100 UNITS/ML SYR SUBCUT SCH (10:20)
[2020-04-13 12:00] VITALS: BP 115/60
[2020-04-13 13:14] LABS: EOSINOPHILS % 3.6 % (0.0-5.0); HEMATOCRIT. 38.7 % (42.0-52.0); LYMPHOCYTES % 17.1 % (20.0-50.0); MEAN CORPUSCULAR HEMOGLOBIN 29.2 pg (28.0-32.0); MEAN CORPUSCULAR VOLUME 86.7 fL (80.0-94.0); MEAN PLATELET VOLUME 7.2 fl (7.4-10.4); MONOCYTES % 7.7 % (2.0-8.0); NEUTROPHILS % 70.6 % (40.0-76.0); PLATELET 320 x1000/uL (130-400); RED BLOOD CELL COUNT 4.46 mill/uL (4.7-6.1); RED CELL DISTRIBUTION WIDTH 14.3 % (11.6-14.6)
[2020-04-13 14:09] LABS: CHLORIDE 106 mEq/L (98-107)
[2020-04-13 16:00] VITALS: BP 101/41
[2020-04-13] MEDS ORDERED: HYDRALAZINE 10 MG in SODIUM CHLORIDE 0.9% 49.5 ML IV PRN (18:00)
[2020-04-13 20:00] VITALS: BP 116/56
[2020-04-14] VITALS: BP 127/60
[2020-04-14 04:00] VITALS: BP 111/51
[2020-04-14] MEDS: METOCLOPRAMIDE 10MG/10 ML UDC PO SCH ×3 (06:55→17:41)
[2020-04-14] MEDS: HYDRALAZINE HCL 50MG TABLET PO SCH ×3 (06:56→23:11)
[2020-04-14] MEDS: INSULIN LISPRO 100 UNITS/ML SUBCUT SCH ×7 (06:56→20:54)
[2020-04-14] MEDS: NITROGLYCERIN OINT 1GM/INCH UDPKT TD SCH ×3 (06:57→22:00)
[2020-04-14] MEDS: BLOOD SUGAR DIAGNOSTIC STRIP TEST SCH ×4 (06:59→20:54)
[2020-04-14 08:00] VITALS: BP 106/50
[2020-04-14] MEDS: ZINC SULFATE 220 MG ( 50 ) CAPSULE PO SCH (08:32)
[2020-04-14] MEDS: METOPROLOL TARTRATE 25MG TABLET PO SCH ×2 (08:32→20:43)
[2020-04-14] MEDS: FAMOTIDINE 20MG TABLET PO SCH ×2 (08:32→20:43)
[2020-04-14] MEDS: ASPIRIN 325MG EC TABLET PO SCH (08:32)
[2020-04-14] MEDS: AMLODIPINE 10MG TABLET PO SCH (08:32)
[2020-04-14] MEDS: LISINOPRIL 20MG TABLET PO SCH ×2 (08:33→20:44)
[2020-04-14] MEDS: ASCORBIC ACID 500 MG TABLET PO SCH ×2 (08:33→20:43)
[2020-04-14] MEDS: ENOXAPARIN 30MG/0.3ML SYR SUBCUT SCH ×2 (08:33→20:43)
[2020-04-14] MEDS: INSULIN GLARGINE UD 100 UNITS/ML SYR SUBCUT SCH (10:56)
[2020-04-14 12:00] VITALS: BP 116/58
[2020-04-14 16:00] VITALS: BP 119/64
[2020-04-14 20:00] VITALS: BP 134/70
[2020-04-15] VITALS: BP 115/54
[2020-04-15 04:00] VITALS: BP 123/59
[2020-04-15] MEDS: NITROGLYCERIN OINT 1GM/INCH UDPKT TD SCH ×3 (06:00→22:00)
[2020-04-15] MEDS: HYDRALAZINE HCL 50MG TABLET PO SCH ×3 (06:34→22:00)
[2020-04-15] MEDS: METOCLOPRAMIDE 10MG/10 ML UDC PO SCH ×3 (06:36→17:04)
[2020-04-15] MEDS: INSULIN LISPRO 100 UNITS/ML SUBCUT SCH ×7 (06:36→21:00)
[2020-04-15] MEDS: BLOOD SUGAR DIAGNOSTIC STRIP TEST SCH ×4 (06:36→21:33)
[2020-04-15] MEDS: METOPROLOL TARTRATE 25MG TABLET PO SCH ×2 (08:02→21:29)
[2020-04-15 08:03] VITALS: BP 147/57
[2020-04-15] MEDS: FAMOTIDINE 20MG TABLET PO SCH ×2 (09:32→21:29)
[2020-04-15] MEDS: AMLODIPINE 10MG TABLET PO SCH (09:32)
[2020-04-15] MEDS: ASPIRIN 325MG EC TABLET PO SCH (09:32)
[2020-04-15] MEDS: ASCORBIC ACID 500 MG TABLET PO SCH ×2 (09:32→21:29)
[2020-04-15] MEDS: LISINOPRIL 20MG TABLET PO SCH ×2 (09:32→21:29)
[2020-04-15] MEDS: ZINC SULFATE 220 MG ( 50 ) CAPSULE PO SCH (09:32)
[2020-04-15] MEDS: ENOXAPARIN 30MG/0.3ML SYR SUBCUT SCH ×2 (09:33→21:28)
[2020-04-15] MEDS: INSULIN GLARGINE UD 100 UNITS/ML SYR SUBCUT SCH (10:10)
[2020-04-15 11:45] VITALS: BP 125/63
[2020-04-15] MEDS: ACETAMINOPHEN 325MG TABLET PO PRN ×2 (12:23→23:53)
[2020-04-15] MEDS: NYSTATIN POWDER 15GM TOP SCH ×2 (14:22→17:05)
[2020-04-15] MEDS: NYSTATIN/TRIAMCIN CREAM 15GM TOP SCH ×2 (14:23→17:04)
[2020-04-15 15:52] VITALS: BP 121/58
[2020-04-15 20:00] VITALS: BP 163/52
[2020-04-16] VITALS: BP 106/47
[2020-04-16 04:00] VITALS: BP 109/51
[2020-04-16] MEDS: NITROGLYCERIN OINT 1GM/INCH UDPKT TD SCH ×2 (06:00→14:59)
[2020-04-16] MEDS: HYDRALAZINE HCL 50MG TABLET PO SCH ×2 (06:51→14:59)
[2020-04-16] MEDS: DOCUSATE SODIUM 100MG CAPSULE PO PRN (06:52)
[2020-04-16] MEDS: INSULIN LISPRO 100 UNITS/ML SUBCUT SCH ×6 (06:53→17:49)
[2020-04-16] MEDS: BLOOD SUGAR DIAGNOSTIC STRIP TEST SCH ×3 (06:53→17:18)
[2020-04-16] MEDS: METOCLOPRAMIDE 10MG/10 ML UDC PO SCH ×3 (06:55→17:32)
[2020-04-16 08:00] VITALS: BP 110/63
[2020-04-16] MEDS: METOPROLOL TARTRATE 25MG TABLET PO SCH (09:00)
[2020-04-16] MEDS: ZINC SULFATE 220 MG ( 50 ) CAPSULE PO SCH (09:29)
[2020-04-16] MEDS: ASCORBIC ACID 500 MG TABLET PO SCH (09:29)
[2020-04-16] MEDS: ASPIRIN 325MG EC TABLET PO SCH (09:30)
[2020-04-16] MEDS: LISINOPRIL 20MG TABLET PO SCH (09:30)
[2020-04-16] MEDS: AMLODIPINE 10MG TABLET PO SCH (09:30)
[2020-04-16] MEDS: ENOXAPARIN 30MG/0.3ML SYR SUBCUT SCH (09:31)
[2020-04-16] MEDS: FAMOTIDINE 20MG TABLET PO SCH (09:31)
[2020-04-16] MEDS: NYSTATIN/TRIAMCIN CREAM 15GM TOP SCH ×3 (09:34→17:33)
[2020-04-16] MEDS: NYSTATIN POWDER 15GM TOP SCH ×3 (09:35→17:33)
[2020-04-16 10:16] VITALS: BP 110/63
[2020-04-16] MEDS: INSULIN GLARGINE UD 100 UNITS/ML SYR SUBCUT SCH (10:46)
[2020-04-16 12:00] VITALS: BP 130/62
== END 2020-04-16 19:40 | DRG 871 ==
LOC: ER 02:06 → CANRESERV 07:32 → ENRESERV 07:32 → EDBEDREQSVC 08:32 → EDBEDREQ 19:32 → ENRESERV 23:50 → 5WST 03-30 00:29 → 6EST 04-10 23:00
PROVIDERS: ADMIT Internal Medicine; ATTEND Internal Medicine
DX: A41.9 Sepsis, unspecified organism (principal); G92 Toxic encephalopathy; E43 Unspecified severe protein-calorie malnutrition; J18.9 Pneumonia, unspecified organism; J96.00 Acute respiratory failure, unspecified whether with hypoxia or hypercapnia; S42.301A Unspecified fracture of shaft of humerus, right arm, initial encounter for closed fracture; E87.1 Hypo-osmolality and hyponatremia; N39.0 Urinary tract infection, site not specified; E87.2 Acidosis; Z68.41 Body mass index [BMI] 40.0-44.9, adult; E11.65 Type 2 diabetes mellitus with hyperglycemia; E87.6 Hypokalemia; I10 Essential (primary) hypertension; F17.200 Nicotine dependence, unspecified, uncomplicated; W19.XXXA Unspecified fall, initial encounter; Z66 Do not resuscitate; Z51.5 Encounter for palliative care; Y95 Nosocomial condition; E66.01 Morbid (severe) obesity due to excess calories; R65.20 Severe sepsis without septic shock; Z20.828 Contact with and (suspected) exposure to other viral communicable diseases; E83.51 Hypocalcemia; Z79.4 Long term (current) use of insulin; Z86.73 Personal history of transient ischemic attack (TIA), and cerebral infarction without residual deficits; Z91.14 Patient's other noncompliance with medication regimen; Z79.899 Other long term (current) drug therapy; Y93.89 Activity, other specified; Y92.89 Other specified places as the place of occurrence of the external cause; Y99.8 Other external cause status; Z79.82 Long term (current) use of aspirin
CPT/HCPCS: 36415; 71045; 72170; 73060; 73090; 73120; 73200; 80048; 80053; 80061; 80305; 80320; 81003; 82550; 82553; 82962; 83036; 83605; 83735; 83880; 84100; 84443; 84484; 85025; 87077; 87186; 93005; 93970; 96365; 97110; 97163; 97164; 97166; 97530; 97535; 99291; A4565; J0360; J0696; J1630; J1650; J1815; J1885; J1956; J2405; J2765; J3480; J3490; J7030; J7060; J8597; L3670; G0480; U0003-CS

== ENCOUNTER 2020-04-21 01:29 | Inpatient (IN) | payer MEDICARE ==
[~2020-04-21] VITALS: Ht 172.7 cm; Wt 122.0 kg
[~2020-04-21 01:29] MED LIST: ASPI325T85 PO
[2020-04-21] MEDS ORDERED: HYDROCODONE/ACETAMINOPHEN 5/325MG TABLET PO ONE (02:30)
[2020-04-21 04:56] LABS: BASOPHILS % 1.2 % (0.0-2.0); EOSINOPHILS % 2.8 % (0.0-5.0); HEMATOCRIT. 41.6 % (42.0-52.0); LYMPHOCYTES % 14.9 % (20.0-50.0); MEAN CORPUSCULAR HEMOGLOBIN 29.7 pg (28.0-32.0); MEAN CORPUSCULAR VOLUME 88.5 fL (80.0-94.0); MEAN PLATELET VOLUME 7.3 fl (7.4-10.4); MONOCYTES % 7.7 % (2.0-8.0); NEUTROPHILS % 73.4 % (40.0-76.0); PLATELET 248 x1000/uL (130-400); RED CELL DISTRIBUTION WIDTH 14.4 % (11.6-14.6)
[2020-04-21] MEDS ORDERED: ONDANSETRON HCL 4MG/2ML INJ IV STA (04:56)
[2020-04-21] MEDS ORDERED: MORPHINE SULFATE 4 MG/ML CPJ (NOT FOR IM USE) IV STA (04:56)
[2020-04-21 05:04] LABS: CHLORIDE 105 mEq/L (98-107)
[2020-04-21 06:12] LABS: PARTIAL THROMBOPLASTIN TIME 28.2 sec (23.4-31.0); PROTHROMBIN TIME 11.3 sec (9.6-11.0)
[2020-04-21] MEDS ORDERED: ACETAMINOPHEN 325MG TABLET PO PRN (06:30)
[2020-04-21] MEDS ORDERED: ONDANSETRON HCL 4MG/2ML INJ IV PRN (06:30)
[2020-04-21] MEDS ORDERED: CLONIDINE 0.1MG TABLET PO PRN (06:30)
[2020-04-21] MEDS ORDERED: GUAIFENESIN 200MG/10ML SUGAR FREE UDC PO PRN (06:30)
[2020-04-21 08:50] VITALS: BP 161/71
[2020-04-21 08:54] VITALS: BP 161/71
[2020-04-21] MEDS ORDERED: DOCUSATE SODIUM 100MG CAPSULE PO PRN (09:00)
[2020-04-21] MEDS ORDERED: MAGNESIUM/ALUMINUM HYDROXIDE/SIMETHICONE 30ML UDC PO PRN (09:00)
[2020-04-21] MEDS ORDERED: AMLO10TA4 MT (09:36)
[2020-04-21] MEDS ORDERED: METO25TA6 MT (09:36)
[2020-04-21] MEDS ORDERED: HYDR-4135 MT (09:36)
[2020-04-21] MEDS ORDERED: FAMO-135 MT (09:36)
[2020-04-21] MEDS ORDERED: LISI-604 MT (09:36)
[2020-04-21] MEDS ORDERED: LOV40 SQ (09:36)
[2020-04-21] MEDS ORDERED: INSLIS SUBCUT (09:36)
[2020-04-21] MEDS ORDERED: INSU100I28 SQ (09:36)
[2020-04-21] MEDS: HYDROCODONE/ACETAMINOPHEN 5/325MG TABLET PO PRN (09:54)
[2020-04-21] MEDS: AMLODIPINE 10MG TABLET PO SCH (09:55)
[2020-04-21] MEDS: ENOXAPARIN 30MG/0.3ML SYR SUBCUT SCH ×2 (09:55→21:54)
[2020-04-21] MEDS ORDERED: DEXTROSE 50% WATER 50ML SYRINGE IV PRN (10:45)
[2020-04-21] MEDS: METOPROLOL TARTRATE 25MG TABLET PO SCH ×2 (11:00→21:58)
[2020-04-21] MEDS: BLOOD SUGAR DIAGNOSTIC STRIP TEST SCH ×3 (11:42→21:55)
[2020-04-21 12:00] VITALS: BP 151/72
[2020-04-21] MEDS: LISINOPRIL 20MG TABLET PO SCH (12:35)
[2020-04-21] MEDS: FAMOTIDINE 20MG TABLET PO SCH ×2 (12:35→21:53)
[2020-04-21] MEDS: INSULIN LISPRO 100 UNITS/ML SUBCUT SCH ×3 (12:40→22:08)
[2020-04-21] MEDS: HYDRALAZINE HCL 50MG TABLET PO SCH ×2 (13:48→21:54)
[2020-04-21 15:48] VITALS: BP 130/59
[2020-04-21 20:00] VITALS: BP 119/66
[2020-04-22] VITALS: BP 109/59
[2020-04-22 04:00] VITALS: BP 127/68
[2020-04-22] MEDS: HYDRALAZINE HCL 50MG TABLET PO SCH ×3 (05:55→21:54)
[2020-04-22] MEDS: INSULIN LISPRO 100 UNITS/ML SUBCUT SCH ×4 (06:00→21:47)
[2020-04-22] MEDS: BLOOD SUGAR DIAGNOSTIC STRIP TEST SCH ×4 (06:00→21:53)
[2020-04-22 06:58] LABS: BASOPHILS % 1.2 % (0.0-2.0); EOSINOPHILS % 4.3 % (0.0-5.0); HEMATOCRIT. 39.2 % (42.0-52.0); HEMOGLOBIN. 13.3 g/dL (14.0-18.0); LYMPHOCYTES % 21.4 % (20.0-50.0); MEAN CORPUSCULAR HEMOGLOBIN 29.5 pg (28.0-32.0); MEAN CORPUSCULAR VOLUME 86.8 fL (80.0-94.0); MEAN PLATELET VOLUME 7.8 fl (7.4-10.4); MONOCYTES % 7.5 % (2.0-8.0); NEUTROPHILS % 65.6 % (40.0-76.0); PLATELET 262 x1000/uL (130-400); RED BLOOD CELL COUNT 4.52 mill/uL (4.7-6.1); RED CELL DISTRIBUTION WIDTH 14.6 % (11.6-14.6)
[2020-04-22 07:20] LABS: CHLORIDE 108 mEq/L (98-107)
[2020-04-22] MEDS ORDERED: AMLODIPINE 10MG TABLET PO SCH (09:00)
[2020-04-22] MEDS: METOPROLOL TARTRATE 25MG TABLET PO SCH ×2 (10:23→21:00)
[2020-04-22] MEDS: FAMOTIDINE 20MG TABLET PO SCH ×2 (10:23→21:53)
[2020-04-22] MEDS: LISINOPRIL 20MG TABLET PO SCH (10:24)
[2020-04-22] MEDS: AMLODIPINE 10MG TABLET PO SCH (10:24)
[2020-04-22 12:00] VITALS: BP 128/65
[2020-04-22] MEDS: ENOXAPARIN 30MG/0.3ML SYR SUBCUT SCH ×2 (14:30→21:53)
[2020-04-22] MEDS: HYDROCODONE/ACETAMINOPHEN 5/325MG TABLET PO PRN (14:40)
[2020-04-22 16:00] VITALS: BP 135/67
[2020-04-22] MEDS: NYSTATIN POWDER 15GM TOP SCH (18:12)
[2020-04-22 20:00] VITALS: BP 105/52
[2020-04-23] VITALS: BP 118/65
[2020-04-23] MEDS: MORPHINE SULFATE 2 MG/ML CPJ (NOT FOR IM USE) IV PRN ×2 (01:18→21:50)
[2020-04-23 04:00] VITALS: BP 120/58
[2020-04-23] MEDS: HYDRALAZINE HCL 50MG TABLET PO SCH ×3 (06:29→22:00)
[2020-04-23] MEDS: BLOOD SUGAR DIAGNOSTIC STRIP TEST SCH ×4 (06:30→21:09)
[2020-04-23] MEDS: INSULIN LISPRO 100 UNITS/ML SUBCUT SCH ×4 (07:50→21:00)
[2020-04-23 08:00] VITALS: BP 167/69
[2020-04-23] MEDS: METOPROLOL TARTRATE 25MG TABLET PO SCH ×2 (09:02→21:00)
[2020-04-23] MEDS: LISINOPRIL 20MG TABLET PO SCH (09:03)
[2020-04-23] MEDS: AMLODIPINE 10MG TABLET PO SCH (09:03)
[2020-04-23] MEDS: FAMOTIDINE 20MG TABLET PO SCH ×2 (09:03→21:50)
[2020-04-23] MEDS: ENOXAPARIN 30MG/0.3ML SYR SUBCUT SCH ×2 (09:03→21:50)
[2020-04-23] MEDS: NYSTATIN POWDER 15GM TOP SCH ×3 (09:06→17:19)
[2020-04-23 12:00] VITALS: BP 105/63
[2020-04-23 16:00] VITALS: BP 134/69
[2020-04-23 20:00] VITALS: BP 101/56
[2020-04-24] VITALS: BP 116/61
[2020-04-24 04:00] VITALS: BP 126/65
[2020-04-24] MEDS: BLOOD SUGAR DIAGNOSTIC STRIP TEST SCH ×4 (06:53→21:00)
[2020-04-24] MEDS: HYDRALAZINE HCL 50MG TABLET PO SCH ×3 (06:53→22:00)
[2020-04-24] MEDS: INSULIN LISPRO 100 UNITS/ML SUBCUT SCH ×4 (06:53→21:00)
[2020-04-24] MEDS: ENOXAPARIN 30MG/0.3ML SYR SUBCUT SCH ×2 (08:58→21:58)
[2020-04-24] MEDS: LISINOPRIL 20MG TABLET PO SCH (08:58)
[2020-04-24] MEDS: FAMOTIDINE 20MG TABLET PO SCH ×2 (08:58→21:56)
[2020-04-24] MEDS: AMLODIPINE 10MG TABLET PO SCH (08:58)
[2020-04-24] MEDS: NYSTATIN POWDER 15GM TOP SCH ×3 (08:59→17:43)
[2020-04-24] MEDS: METOPROLOL TARTRATE 25MG TABLET PO SCH ×2 (08:59→21:55)
[2020-04-24 16:00] VITALS: BP 120/77
[2020-04-24 17:08] LABS: HEMATOCRIT 38.8 % (42.0-52.0); HEMOGLOBIN 13.1 g/dL (14.0-18.0); MEAN CORPUSCULAR HEMOGLOBIN 29.4 pg (28.0-32.0); PLATELET 262 x1000/uL (130-400); RED BLOOD CELL COUNT 4.46 mill/uL (4.7-6.1); RED CELL DISTRIBUTION WIDTH 14.4 % (11.6-14.6)
[2020-04-24 17:14] LABS: CHLORIDE 105 mEq/L (98-107)
[2020-04-24 20:00] VITALS: BP 115/68
[2020-04-25] VITALS: BP 100/59
[2020-04-25 04:00] VITALS: BP 129/75
[2020-04-25] MEDS: HYDRALAZINE HCL 50MG TABLET PO SCH ×3 (06:01→22:00)
[2020-04-25] MEDS: BLOOD SUGAR DIAGNOSTIC STRIP TEST SCH ×4 (06:38→21:14)
[2020-04-25] MEDS ORDERED: SKIN ADHESIVE 0.7 GM EA TOP ONE (06:48)
[2020-04-25] MEDS ORDERED: VANCOMYCIN HCL 1 GM/VIAL ONE (06:49)
[2020-04-25] MEDS ORDERED: BUPIVACAINE HCL/EPINEPHRINE/PF 0.5%/0.0005 10ML ONE (06:50)
[2020-04-25] MEDS ORDERED: BACITRACIN 50,000 UNITS/VIAL ONE (06:50)
[2020-04-25] MEDS ORDERED: MORPHINE SULFATE/PF 1MG/ML 10ML AMP ONE (06:51)
[2020-04-25] MEDS ORDERED: ROPIVACAINE HCL 10MG/ML 20 ML VIAL EPI ONE ×2 (06:51→08:03)
[2020-04-25] MEDS ORDERED: EPINEPHRINE 1:1000 1 MG/ML AMP ONE (06:51)
[2020-04-25] MEDS ORDERED: TRANEXAMIC ACID 1,000 MG/10 ML IV ONE (07:30)
[2020-04-25] MEDS ORDERED: TRANEXAMIC ACID 1,000 MG in SODIUM CHLORIDE 0.9% 100 ML IV NR ×2 (07:45→09:45)
[2020-04-25] MEDS: INSULIN LISPRO 100 UNITS/ML SUBCUT SCH ×4 (07:50→21:29)
[2020-04-25] MEDS ORDERED: KETOROLAC 30MG/ML VIAL ONE (07:56)
[2020-04-25] MEDS ORDERED: FENTANYL CITRATE/PF 50MCG/ML 2ML VIAL ONE (08:07)
[2020-04-25] MEDS ORDERED: ROCURONIUM BROMIDE 10MG/ML VIAL 5ML IV ONE ×2 (08:07→09:17)
[2020-04-25] MEDS ORDERED: MIDAZOLAM HCL 2 MG/2 ML VIAL ONE (08:07)
[2020-04-25] MEDS ORDERED: GLYCOPYRROLATE 0.2 MG/ML 2ML VIAL ONE (08:07)
[2020-04-25] MEDS ORDERED: PROPOFOL 200MG/20ML VIAL IV ONE (08:07)
[2020-04-25] MEDS ORDERED: NEOSTIGMINE METHYLSULFATE 1MG/ML 10 ML VIAL ONE (08:07)
[2020-04-25] MEDS ORDERED: LIDOCAINE HCL/PF 1% 10 MG/ML 5ML VIAL ONE (08:08)
[2020-04-25] MEDS ORDERED: SODIUM CHLORIDE 0.9% 10ML VIAL ONE (08:08)
[2020-04-25] MEDS ORDERED: SUCCINYLCHOLINE CHLORIDE 200MG/10ML IV ONE (08:08)
[2020-04-25] MEDS ORDERED: EPHEDRINE SULFATE 50MG/ML VIAL ONE (08:08)
[2020-04-25] MEDS ORDERED: CEFAZOLIN SODIUM 1000MG/VIAL ONE (08:08)
[2020-04-25] MEDS ORDERED: PHENYLEPHRINE HCL 10 MG/ML 1ML (IV VIAL) IV ONE (08:08)
[2020-04-25] MEDS ORDERED: METOCLOPRAMIDE HCL 10MG/2ML VIAL ONE (08:08)
[2020-04-25] MEDS ORDERED: ONDANSETRON HCL 4MG/2ML INJ ONE (08:08)
[2020-04-25] MEDS: AMLODIPINE 10MG TABLET PO SCH (08:13)
[2020-04-25] MEDS: METOPROLOL TARTRATE 25MG TABLET PO SCH ×2 (08:13→21:26)
[2020-04-25] MEDS: FAMOTIDINE 20MG TABLET PO SCH ×2 (08:13→21:26)
[2020-04-25] MEDS: NYSTATIN/TRIAMCIN CREAM 15GM TOP SCH ×3 (08:14→17:00)
[2020-04-25] MEDS: NYSTATIN POWDER 15GM TOP SCH ×3 (08:14→17:18)
[2020-04-25] MEDS: ENOXAPARIN 30MG/0.3ML SYR SUBCUT SCH ×2 (08:14→21:27)
[2020-04-25] MEDS: LISINOPRIL 20MG TABLET PO SCH (08:14)
[2020-04-25] MEDS ORDERED: ALBUMIN HUMAN 12.5G/250ML (5%) IV ONE (09:09)
[2020-04-25] MEDS ORDERED: KETOROLAC 30MG/ML VIAL IV PRN (10:15)
[2020-04-25] MEDS ORDERED: HYDROCODONE/ACETAMINOPHEN 5/325MG TABLET PO PRN (10:15)
[2020-04-25] MEDS ORDERED: SODIUM CHLORIDE 0.9% 1,000 ML IV ONE (10:27)
[2020-04-25] MEDS ORDERED: HYDROMORPHONE HCL/PF 2MG/ML CPJ IV PRN (10:30)
[2020-04-25] MEDS ORDERED: MEPERIDINE HCL/PF 25MG/ML CPJ IV PRN (10:30)
[2020-04-25] MEDS ORDERED: MORPHINE SULFATE 2 MG/ML CPJ (NOT FOR IM USE) IV PRN (10:30)
[2020-04-25] MEDS ORDERED: ONDANSETRON HCL 4MG/2ML INJ IV PRN (10:30)
[2020-04-25] MEDS ORDERED: CEFAZOLIN 1000MG PREMIX 50 ML IV NR (11:00)
[2020-04-25 12:00] VITALS: BP 126/67
[2020-04-25 14:00] VITALS: BP 131/64
[2020-04-25 16:00] VITALS: BP 136/78
[2020-04-25 20:00] VITALS: BP 115/67
[2020-04-25] MEDS: CEFAZOLIN 1000MG PREMIX 50 ML IV SCH (22:27)
[2020-04-26] VITALS: BP 128/68
[2020-04-26 04:00] VITALS: BP 108/68
[2020-04-26] MEDS: CEFAZOLIN 1000MG PREMIX 50 ML IV SCH ×3 (05:02→20:14)
[2020-04-26] MEDS: HYDRALAZINE HCL 50MG TABLET PO SCH ×3 (06:00→21:19)
[2020-04-26] MEDS: BLOOD SUGAR DIAGNOSTIC STRIP TEST SCH ×4 (07:42→20:47)
[2020-04-26] MEDS: INSULIN LISPRO 100 UNITS/ML SUBCUT SCH ×4 (07:50→20:47)
[2020-04-26 08:00] VITALS: BP 134/62
[2020-04-26] MEDS: FAMOTIDINE 20MG TABLET PO SCH ×2 (08:15→21:19)
[2020-04-26] MEDS: LISINOPRIL 20MG TABLET PO SCH (08:15)
[2020-04-26] MEDS: METOPROLOL TARTRATE 25MG TABLET PO SCH ×2 (08:15→21:00)
[2020-04-26] MEDS: ENOXAPARIN 30MG/0.3ML SYR SUBCUT SCH ×2 (08:18→21:19)
[2020-04-26] MEDS: NYSTATIN/TRIAMCIN CREAM 15GM TOP SCH ×3 (08:23→16:53)
[2020-04-26] MEDS: AMLODIPINE 10MG TABLET PO SCH (08:23)
[2020-04-26] MEDS: NYSTATIN POWDER 15GM TOP SCH ×3 (08:25→16:54)
[2020-04-26 12:00] VITALS: BP 126/56
[2020-04-26] MEDS: HYDROCODONE/ACETAMINOPHEN 10/325MG TABLET PO PRN ×2 (12:40→17:42)
[2020-04-26 16:00] VITALS: BP 128/61
[2020-04-26 20:00] VITALS: BP 141/70
[2020-04-27] VITALS: BP 107/59
[2020-04-27] MEDS: CEFAZOLIN 1000MG PREMIX 50 ML IV SCH ×3 (03:30→21:20)
[2020-04-27 04:00] VITALS: BP 108/52
[2020-04-27] MEDS: HYDRALAZINE HCL 50MG TABLET PO SCH ×3 (05:58→22:00)
[2020-04-27] MEDS: BLOOD SUGAR DIAGNOSTIC STRIP TEST SCH ×4 (06:48→21:23)
[2020-04-27] MEDS: INSULIN LISPRO 100 UNITS/ML SUBCUT SCH ×3 (07:50→21:22)
[2020-04-27 08:00] VITALS: BP 144/71
[2020-04-27] MEDS: FAMOTIDINE 20MG TABLET PO SCH ×2 (08:59→21:20)
[2020-04-27] MEDS: METOPROLOL TARTRATE 25MG TABLET PO SCH ×2 (08:59→21:00)
[2020-04-27] MEDS: AMLODIPINE 10MG TABLET PO SCH (08:59)
[2020-04-27] MEDS: ENOXAPARIN 30MG/0.3ML SYR SUBCUT SCH ×2 (09:00→21:21)
[2020-04-27] MEDS: LISINOPRIL 20MG TABLET PO SCH (09:00)
[2020-04-27] MEDS: HYDROCODONE/ACETAMINOPHEN 10/325MG TABLET PO PRN (09:06)
[2020-04-27 12:00] VITALS: BP 122/59
[2020-04-27] MEDS: NYSTATIN POWDER 15GM TOP SCH ×2 (13:16→18:11)
[2020-04-27] MEDS: NYSTATIN/TRIAMCIN CREAM 15GM TOP SCH ×2 (13:16→18:11)
[2020-04-27 20:00] VITALS: BP 109/65
[2020-04-28] VITALS: BP 115/66
[2020-04-28] MEDS: HYDROCODONE/ACETAMINOPHEN 10/325MG TABLET PO PRN ×2 (01:19→09:05)
[2020-04-28 04:00] VITALS: BP 141/72
[2020-04-28] MEDS: HYDRALAZINE HCL 50MG TABLET PO SCH ×2 (06:00→14:00)
[2020-04-28] MEDS: INSULIN LISPRO 100 UNITS/ML SUBCUT SCH ×3 (07:50→17:50)
[2020-04-28] MEDS: BLOOD SUGAR DIAGNOSTIC STRIP TEST SCH ×3 (07:53→17:20)
[2020-04-28 08:00] VITALS: BP 138/69
[2020-04-28] MEDS: METOPROLOL TARTRATE 25MG TABLET PO SCH (08:59)
[2020-04-28] MEDS: AMLODIPINE 10MG TABLET PO SCH (08:59)
[2020-04-28] MEDS: FAMOTIDINE 20MG TABLET PO SCH (08:59)
[2020-04-28] MEDS: LISINOPRIL 20MG TABLET PO SCH (08:59)
[2020-04-28] MEDS: ENOXAPARIN 30MG/0.3ML SYR SUBCUT SCH (09:00)
[2020-04-28] MEDS: NYSTATIN POWDER 15GM TOP SCH ×3 (09:01→18:12)
[2020-04-28] MEDS: NYSTATIN/TRIAMCIN CREAM 15GM TOP SCH ×3 (09:01→18:12)
[2020-04-28 12:00] VITALS: BP 133/77
[2020-04-28 16:00] VITALS: BP 131/70
[2020-04-28 20:00] VITALS: BP 101/63
== END 2020-04-28 21:08 | DRG 483 ==
LOC: ER 01:29 → MICUSO 06:02 → EDBEDREQ 06:07 → EDBEDREQTM 06:07 → 6EST 09:11 → 6WST 04-25 13:05
PROVIDERS: ADMIT Internal Medicine; ATTEND Internal Medicine
PROC: 0RRJ00Z Replacement of Right Shoulder Joint with Reverse Ball and Socket Synthetic Substitute, Open Approach (ICD-10-PCS; principal; 2020-04-25)
DX: S42.291A Other displaced fracture of upper end of right humerus, initial encounter for closed fracture (principal); E43 Unspecified severe protein-calorie malnutrition; G92 Toxic encephalopathy; Z68.41 Body mass index [BMI] 40.0-44.9, adult; E11.9 Type 2 diabetes mellitus without complications; E78.5 Hyperlipidemia, unspecified; I10 Essential (primary) hypertension; Z86.73 Personal history of transient ischemic attack (TIA), and cerebral infarction without residual deficits; E66.9 Obesity, unspecified; G89.29 Other chronic pain; M81.0 Age-related osteoporosis without current pathological fracture; W01.0XXA Fall on same level from slipping, tripping and stumbling without subsequent striking against object, initial encounter; Y93.89 Activity, other specified; Y92.89 Other specified places as the place of occurrence of the external cause; Y99.8 Other external cause status; Z71.3 Dietary counseling and surveillance; Z03.818 Encounter for observation for suspected exposure to other biological agents ruled out
CPT/HCPCS: 36415; 73020; 73030; 73060; 80048; 80053; 82962; 83036; 85025; 85027; 88305; 88311; 93005; 93306; 96374; 97162; 97166; 97530; 99285; J0171; J0330; J0690; J1650; J1815; J1885; J2175; J2250; J2270; J2274; J2370; J2405; J2704; J2710; J2765; J2795; J3010; J3370; J3490; J7050; P9041; U0003-CS

== ENCOUNTER 2020-04-30 17:03 | Emergency (ER) | payer SELFPAY ==
[~2020-04-30] VITALS: Ht 180.3 cm; Wt 123.0 kg
[~2020-04-30 17:03] MED LIST changes: +AMLO10TA4 MT; +FAMO-135 MT; +HYDR-4135 MT; +INSLIS SUBCUT; +INSU100I28 SQ; +LISI-604 MT; +LOV40 SQ; +METO25TA6 MT
[2020-04-30] MEDS ORDERED: ONDANSETRON 4MG ODT PO ONE (17:45)
[2020-04-30] MEDS ORDERED: ACETAMINOPHEN WITH CODEINE 300/30MG TABLET PO ONE (17:45)
[2020-04-30] MEDS ORDERED: PROPOFOL 200MG/20ML VIAL IV ONE (18:30)
[2020-04-30] MEDS ORDERED: KETAMINE HCL 50 MG/ML 10ML IV ONE (18:30)
[2020-04-30] MEDS ORDERED: MORPHINE SULFATE 10 MG/ML CPJ IV ONE (18:30)
[2020-04-30 23:25] VITALS: BP 116/75
== END 2020-04-30 23:28 | disposition home or self-care (01) ==
LOC: ER 17:03
DX: S43.084A Other dislocation of right shoulder joint, initial encounter (principal); W18.39XA Other fall on same level, initial encounter; Y93.89 Activity, other specified; Y92.89 Other specified places as the place of occurrence of the external cause; Y99.8 Other external cause status; K21.9 Gastro-esophageal reflux disease without esophagitis; I10 Essential (primary) hypertension; Z86.73 Personal history of transient ischemic attack (TIA), and cerebral infarction without residual deficits; Z87.440 Personal history of urinary (tract) infections; Z79.82 Long term (current) use of aspirin; Z79.899 Other long term (current) drug therapy
CPT/HCPCS: 23650; 73030; 96374; 96375; 99152; 99153; 99285; J2270; J2704; J3490; Q0162

== ENCOUNTER 2022-08-07 02:46 | Inpatient (IN) | payer MEDICARE, OTHER ==
[~2022-08-07] VITALS: Ht 170.2 cm; Wt 110.7 kg
[~2022-08-07 02:46] MED LIST changes: +ASPI-867 PO; -ASPI325T85 PO; +ENOX40SY27 SQ; -LISI-604 MT; +LISI20TA31 MT; -LOV40 SQ
[2022-08-07] MEDS ORDERED: MORPHINE SULFATE 4 MG/ML CPJ (NOT FOR IM USE) IV STA (03:08)
[2022-08-07] MEDS ORDERED: ONDANSETRON HCL 4MG/2ML INJ IV STA (03:08)
[2022-08-07] MEDS ORDERED: SODIUM CHLORIDE 0.9% 1,000 ML IV ONE (03:15)
[2022-08-07 03:22] LABS: BASOPHILS % 0.3 % (0.0-2.0); EOSINOPHILS % 5.9 % (0.0-5.0); HEMATOCRIT. 38.1 % (42.0-52.0); HEMOGLOBIN. 12.3 g/dL (14.0-18.0); LYMPHOCYTES % 22.4 % (20.0-50.0); MEAN CORPUSCULAR HEMOGLOBIN 27.7 pg (28.0-32.0); MEAN CORPUSCULAR VOLUME 85.9 fL (80.0-94.0); MEAN PLATELET VOLUME 6.8 fl (7.4-10.4); MONOCYTES % 8.7 % (2.0-8.0); NEUTROPHILS % 62.7 % (40.0-76.0); PLATELET 189 x1000/uL (130-400); RED BLOOD CELL COUNT 4.44 mill/uL (4.7-6.1); RED CELL DISTRIBUTION WIDTH 15.2 % (11.6-14.6)
[2022-08-07 03:31] LABS: CHLORIDE 110 mEq/L (98-107)
[2022-08-07] MEDS ORDERED: CLONIDINE 0.1MG TABLET PO ONE (05:15)
[2022-08-07 06:01] LABS: CLARITY URINE CLEAR (CLEAR); COLOR URINE YELLOW (YELLOW); KETONES URINE NEGATIVE (NEGATIVE); LEUKOCYTE ESTERASE URINE NEGATIVE (NEGATIVE); NITRITE URINE NEGATIVE (NEGATIVE); OCCULT BLOOD URINE NEGATIVE (NEGATIVE); PH URINE 6.5 (4.5-8.0); PROTEIN URINE NEGATIVE (NEGATIVE); SPECIFIC GRAVITY URINE 1.006 (1.005-1.030); UROBILINOGEN URINE 0.2 E.U./dL (0.2-1.0)
[2022-08-07] MEDS ORDERED: MORPHINE SULFATE 4 MG/ML CPJ (NOT FOR IM USE) IV ONE (06:15)
[2022-08-07] MEDS ORDERED: IPRATROPIUM/ALBUTEROL 0.5-3(2.5)MG/3ML NEB NEB PRN (08:00)
[2022-08-07] MEDS ORDERED: ONDANSETRON HCL 4MG/2ML INJ IV PRN (08:00)
[2022-08-07] MEDS ORDERED: ACETAMINOPHEN 325MG TABLET PO PRN ×2 (08:00)
[2022-08-07] MEDS ORDERED: HYDRALAZINE 20MG/ML VIAL IV SCH (08:00)
[2022-08-07] MEDS ORDERED: DEXTROSE 50% WATER 50ML SYRINGE IV PRN (08:00)
[2022-08-07] MEDS ORDERED: GUAIFENESIN 200MG/10ML SUGAR FREE UDC PO PRN (08:00)
[2022-08-07] MEDS ORDERED: NITROGLYCERIN 0.4MG TABLET SL SL PRN (08:00)
[2022-08-07] MEDS ORDERED: MAGNESIUM/ALUMINUM HYDROXIDE/SIMETHICONE 30ML UDC PO PRN (08:00)
[2022-08-07] MEDS ORDERED: ZOLPIDEM TARTRATE 5MG TABLET PO PRN (08:00)
[2022-08-07] MEDS ORDERED: CLONIDINE 0.1MG TABLET PO PRN (08:00)
[2022-08-07] MEDS ORDERED: DOCUSATE SODIUM 100MG CAPSULE PO PRN (08:00)
[2022-08-07] MEDS ORDERED: NALOXONE HCL 0.4MG/ML VIAL IV PRN (08:15)
[2022-08-07 08:19] LABS: *AMPHETAMINES SCREEN URINE NEGATIVE (NEGATIVE); *BARBITURATES SCREEN URINE NEGATIVE (NEGATIVE); *BENZODIAZEPINES SCREEN URINE NEGATIVE (NEGATIVE); *COCAINE SCREEN URINE NEGATIVE (NEGATIVE); CANNABINOID URINE SCREEN NEGATIVE (NEGATIVE); METHADONE URINE SCREEN NEGATIVE (NEGATIVE); OPIATES URINE SCREEN PRESUMTIVE POSITIVE (NEGATIVE); PHENCYCLIDINE URINE SCREEN NEGATIVE (NEGATIVE)
[2022-08-07] MEDS: BLOOD SUGAR DIAGNOSTIC STRIP TEST SCH ×4 (08:40→21:16)
[2022-08-07] MEDS: INSULIN LISPRO 100 UNITS/ML SUBCUT SCH ×4 (08:45→21:00)
[2022-08-07] MEDS ORDERED: ENOXAPARIN 40MG/0.4ML SYR SUBCUT SCH (09:00)
[2022-08-07] MEDS: METOPROLOL TARTRATE 25MG TABLET PO SCH ×2 (10:24→21:00)
[2022-08-07] MEDS: FAMOTIDINE 20MG TABLET PO SCH ×2 (10:25→21:15)
[2022-08-07] MEDS: LISINOPRIL 20MG TABLET PO SCH ×2 (10:25→21:00)
[2022-08-07] MEDS: KETOROLAC 15MG/ML VIAL IV PRN ×2 (10:47→18:45)
[2022-08-07] MEDS: LIDOCAINE 5% PATCH TOP SCH (10:47)
[2022-08-07] MEDS: NIFEDIPINE XL 60MG TAB PO SCH (11:25)
[2022-08-07] MEDS: TRAMADOL 50MG TABLET PO PRN (11:26)
[2022-08-07 11:41] VITALS: BP 188/82
[2022-08-07 12:00] VITALS: BP_SYST 160; BP_SYST 188; BP_DIAS 80; BP_DIAS 82
[2022-08-07] MEDS: HYDRALAZINE HCL 50MG TABLET PO SCH ×2 (13:53→21:15)
[2022-08-07 15:43] VITALS: BP 125/59
[2022-08-07 15:50] LABS: FOLIC ACID (FOLATE) SERUM 6.2 ng/mL (>5.38)
[2022-08-07 16:57] LABS: ETHANOL BLOOD < 10 mg/dL; HDL CHOLESTEROL 26 mg/dL (40-59); LDL CHOLESTEROL 65 mg/dL (5-100); T4 FREE 1.24 ng/dL (0.76-1.46); TOTAL IRON BINDING CAPACITY 240 ug/dL (250-450)
[2022-08-07 17:25] LABS: CREATINE KINASE 59 IU/L (39-308); CREATINE KINASE MB FRACTION 1.8 ng/mL (0.5-3.6)
[2022-08-07 20:00] VITALS: BP 120/51
[2022-08-07] MEDS: ENOXAPARIN 30MG/0.3ML SYR SUBCUT SCH (21:58)
[2022-08-08] VITALS: BP 150/60
[2022-08-08 01:09] LABS: CREATINE KINASE MB FRACTION 1.5 ng/mL (0.5-3.6)
[2022-08-08 04:00] VITALS: BP 134/60
[2022-08-08] MEDS: HYDRALAZINE HCL 50MG TABLET PO SCH ×3 (06:01→22:10)
[2022-08-08 08:00] VITALS: BP 154/62
[2022-08-08 08:19] LABS: BASOPHILS % 1.6 % (0.0-2.0); EOSINOPHILS % 7.4 % (0.0-5.0); HEMATOCRIT. 36.8 % (42.0-52.0); LYMPHOCYTES % 22.9 % (20.0-50.0); MEAN CORPUSCULAR HEMOGLOBIN 28.2 pg (28.0-32.0); MEAN CORPUSCULAR VOLUME 86.6 fL (80.0-94.0); MEAN PLATELET VOLUME 7.7 fl (7.4-10.4); MONOCYTES % 8.9 % (2.0-8.0); NEUTROPHILS % 59.2 % (40.0-76.0); PLATELET 174 x1000/uL (130-400); RED BLOOD CELL COUNT 4.25 mill/uL (4.7-6.1); RED CELL DISTRIBUTION WIDTH 14.9 % (11.6-14.6)
[2022-08-08] MEDS: METOPROLOL TARTRATE 25MG TABLET PO SCH ×2 (09:00→22:10)
[2022-08-08] MEDS: LISINOPRIL 20MG TABLET PO SCH ×2 (09:44→22:11)
[2022-08-08] MEDS: NIFEDIPINE XL 60MG TAB PO SCH (09:44)
[2022-08-08] MEDS: FAMOTIDINE 20MG TABLET PO SCH ×2 (09:44→22:10)
[2022-08-08] MEDS: LIDOCAINE 5% PATCH TOP SCH (09:50)
[2022-08-08 11:49] LABS: CHLORIDE 109 mEq/L (98-107)
[2022-08-08 12:00] VITALS: BP 161/63
[2022-08-08] MEDS: BLOOD SUGAR DIAGNOSTIC STRIP TEST SCH ×3 (12:10→20:14)
[2022-08-08 12:18] LABS: PHOSPHORUS 3.1 mg/dL (2.5-4.9)
[2022-08-08] MEDS: INSULIN LISPRO 100 UNITS/ML SUBCUT SCH ×3 (12:40→20:14)
[2022-08-08] MEDS: TRAMADOL 50MG TABLET PO PRN (13:34)
[2022-08-08] MEDS: ENOXAPARIN 30MG/0.3ML SYR SUBCUT SCH ×2 (13:34→22:11)
[2022-08-08 16:00] VITALS: BP 137/58
[2022-08-08] MEDS: KETOROLAC 15MG/ML VIAL IV PRN (16:27)
[2022-08-08 20:00] VITALS: BP 131/63
[2022-08-09 04:10] VITALS: BP 135/65
[2022-08-09] MEDS: HYDRALAZINE HCL 50MG TABLET PO SCH ×3 (06:08→20:38)
[2022-08-09] MEDS: BLOOD SUGAR DIAGNOSTIC STRIP TEST SCH ×3 (06:11→20:08)
[2022-08-09] MEDS: INSULIN LISPRO 100 UNITS/ML SUBCUT SCH ×3 (06:28→20:29)
[2022-08-09 08:00] VITALS: BP 138/58
[2022-08-09] MEDS: FAMOTIDINE 20MG TABLET PO SCH ×2 (10:24→20:39)
[2022-08-09] MEDS: METOPROLOL TARTRATE 25MG TABLET PO SCH ×2 (10:24→20:38)
[2022-08-09] MEDS: LISINOPRIL 20MG TABLET PO SCH ×2 (10:25→20:38)
[2022-08-09] MEDS: NIFEDIPINE XL 60MG TAB PO SCH (10:25)
[2022-08-09] MEDS: ENOXAPARIN 30MG/0.3ML SYR SUBCUT SCH ×2 (10:25→20:38)
[2022-08-09] MEDS: LIDOCAINE 5% PATCH TOP SCH (10:26)
[2022-08-09 12:00] VITALS: BP 157/65
[2022-08-09 16:00] VITALS: BP 101/62
[2022-08-09 20:03] VITALS: BP 141/64
[2022-08-09 23:54] VITALS: BP 140/57
[2022-08-10 03:31] VITALS: BP 128/65
[2022-08-10] MEDS: BLOOD SUGAR DIAGNOSTIC STRIP TEST SCH ×4 (05:08→21:00)
[2022-08-10] MEDS: HYDRALAZINE HCL 50MG TABLET PO SCH ×3 (05:24→22:00)
[2022-08-10] MEDS: INSULIN LISPRO 100 UNITS/ML SUBCUT SCH ×4 (05:29→21:00)
[2022-08-10] MEDS: LIDOCAINE 5% PATCH TOP SCH (10:44)
[2022-08-10] MEDS: LISINOPRIL 20MG TABLET PO SCH (10:44)
[2022-08-10] MEDS: NIFEDIPINE XL 60MG TAB PO SCH (10:45)
[2022-08-10] MEDS: FAMOTIDINE 20MG TABLET PO SCH (10:45)
[2022-08-10] MEDS: METOPROLOL TARTRATE 25MG TABLET PO SCH (10:46)
[2022-08-10] MEDS: ENOXAPARIN 30MG/0.3ML SYR SUBCUT SCH ×2 (10:48→21:00)
[2022-08-10 12:00] VITALS: BP 135/68
[2022-08-10 16:00] VITALS: BP 140/112
[2022-08-10] MEDS: CYANOCOBALAMIN 1000MCG/ML VIAL IM SCH (16:37)
[2022-08-11] MEDS: FAMOTIDINE 20MG TABLET PO SCH ×2 (05:35→10:04)
[2022-08-11] MEDS: LISINOPRIL 20MG TABLET PO SCH ×2 (05:36→09:00)
[2022-08-11] MEDS: METOPROLOL TARTRATE 25MG TABLET PO SCH ×2 (05:36→10:03)
[2022-08-11 05:40] VITALS: BP 112/81
[2022-08-11] MEDS: HYDRALAZINE HCL 50MG TABLET PO SCH ×2 (06:00→14:00)
[2022-08-11] MEDS: BLOOD SUGAR DIAGNOSTIC STRIP TEST SCH ×2 (07:10→12:10)
[2022-08-11] MEDS: INSULIN LISPRO 100 UNITS/ML SUBCUT SCH ×2 (07:40→12:40)
[2022-08-11 08:00] VITALS: BP 144/80
[2022-08-11] MEDS ORDERED: LIDOCAINE 5% PATCH TOP SCH (09:30)
[2022-08-11] MEDS: CYANOCOBALAMIN 1000MCG/ML VIAL IM SCH (10:02)
[2022-08-11] MEDS: NIFEDIPINE XL 60MG TAB PO SCH (10:04)
[2022-08-11] MEDS: ENOXAPARIN 30MG/0.3ML SYR SUBCUT SCH (10:05)
[2022-08-11] MEDS: LIDOCAINE 5% PATCH TOP SCH (10:06)
[2022-08-11] MEDS ORDERED: LIDO700A30 TOP (11:30)
[2022-08-11] MEDS ORDERED: B12/1TAB MT (11:30)
[2022-08-11] MEDS ORDERED: NIFE-32 PO (11:30)
[2022-08-11 12:00] VITALS: BP 138/78
[2022-08-11] MEDS ORDERED: DICLOFENAC SODIUM 1% GEL 50GM TOP SCH (12:00)
[2022-08-11 13:37] VITALS: BP 144/80
== END 2022-08-11 16:30 | disposition home health service (06) | DRG 552 ==
LOC: ER 03:03 → CANBEDREQ 05:43 → 8WST 05:49 → ENRESERV 10:41
PROVIDERS: ADMIT Internal Medicine; ATTEND Internal Medicine
DX: M47.816 Spondylosis without myelopathy or radiculopathy, lumbar region (principal); M51.26 Other intervertebral disc displacement, lumbar region; M47.817 Spondylosis without myelopathy or radiculopathy, lumbosacral region; M41.86 Other forms of scoliosis, lumbar region; K21.9 Gastro-esophageal reflux disease without esophagitis; I16.0 Hypertensive urgency; E66.9 Obesity, unspecified; Z20.822 Contact with and (suspected) exposure to COVID-19; I10 Essential (primary) hypertension; K80.20 Calculus of gallbladder without cholecystitis without obstruction; E11.42 Type 2 diabetes mellitus with diabetic polyneuropathy; M19.90 Unspecified osteoarthritis, unspecified site; E53.8 Deficiency of other specified B group vitamins; R53.81 Other malaise; R26.9 Unspecified abnormalities of gait and mobility; Z86.73 Personal history of transient ischemic attack (TIA), and cerebral infarction without residual deficits; Z79.899 Other long term (current) drug therapy; Z79.82 Long term (current) use of aspirin; Z68.38 Body mass index [BMI] 38.0-38.9, adult; Z87.891 Personal history of nicotine dependence
CPT/HCPCS: 36415; 70551; 71045; 72148; 74176; 76700; 80053; 80061; 80305; 80320; 81003; 82550; 82553; 82607; 82746; 82962; 83036; 83540; 83550; 83735; 84100; 84439; 84443; 84484; 85025; 87426; 93970; 97162; 97165; 99285; A6261; J0360; J1650; J1885; J2270; J2405; J3420; J7030; G0480